=== PATIENT | male | born 1945 | race Caucasian/White ===

== ENCOUNTER → 2025-09-29 08:53 | Outpatient (CLI) | payer OTHER, SELFPAY ==
--- NOTE | 2025-09-29 08:55 | DI.ECHO.S_ITS ---
[facility]+ [facility] : : [address] : : [place] : : [id number] : : Phone: [phone] Echocardiogram Report + + :Name: JAMES DORANTES Study Date: 09/29/2025 Height: 77 in : :[facility] ReadingLocation: Weight: 270 lb : : Gender: Male BSA: 2.5 m2 : :: 1945 Age: 80 yrs BP: 131/61 mmHg: :Reason For Study: HEART DISEASE : :Ordering Physician: DOMINIK, : :QAIN Performed By: Ga Alcaraz : :Referring: QIAN LEHMAN : + + Interpretation Summary 1) Normal left ventricular thickness and size with mildly reduced systolic function (EF 45-50%). There is mild global hypokinesis of the left ventricle. 2) Upper normal right ventricular size with normal function. 3) No significant valvular abnormalities. 4) No prior Echo available for comparison. Procedure: A two-dimensional transthoracic echocardiogram with color flow and Doppler was performed. The study quality was technically adequate. There is no prior echocardiogram noted for this patient. The patient was in atrial fibrillation with heart rates between 51-73 bpm during the exam. Left Ventricle: The left ventricle is normal in size. There is normal left ventricular wall thickness. There is no ventricular septal defect visualized. The ejection fraction is estimated to be 45-50%. There is mild global hypokinesis of the left ventricle. Diastolic function could not be accurately assessed due to atrial fibrillation. Right Ventricle: The right ventricle is at the upper limits of normal in size. The right ventricular systolic function is normal. Atria: The left atrium is mildly dilated. The right atrium is mildly dilated. There is no Doppler evidence for an interatrial shunt. Mitral Valve: There is a flat closure plane of the the mitral valve leaflets. There is trace mitral regurgitation. Aortic Valve: The aortic valve is trileaflet. The aortic valve opens well. There is no aortic valve stenosis. No aortic regurgitation is present. Tricuspid Valve: The tricuspid valve leaflets are thin and pliable. There is a trace or physiologic amount of tricuspid regurgitation. Pulmonic Valve: The pulmonic valve is not well seen, but is grossly normal. There is no pulmonic valvular regurgitation. Great Vessels: The aortic root is mildly dilated. The dimensions of the ascending aorta are normal. The pulmonary artery is not well visualized, but is probably normal size. The inferior vena cava was not visualized. Pericardium/ Pleura There is no pericardial effusion. MMode/2D Measurements & Calculations LVIDd: 5.3 cm LVOT diam: 2.3 cm LVIDs: 3.6 cm Ao root diam: 3.9 cm FS: 33.2 % EPSS: 0.75 cm IVSd: 1.0 cm LVPWd: 0.87 cm LV jordan. diameter/BSA (cm/m^2): 2.1 LV sys. diameter/BSA (cm/m^2): 1.4 LA A2 area: 24.0 cm2 RA long axis: 6.0 cm LA A4 area: 23.8 cm2 RA area: 22.8 cm2 LA length (vol): 6.8 cm RA vol: 73.7 ml LA vol: 70.8 ml RA : 29.0 ml/m2 LA vol index: 27.8 ml/m2 RVD1 (basal): 4.3 cm RVD2 (mid): 3.0 cm TAPSE: 1.6 cm Doppler Measurements & Calculations Ao V2 max: 100.7 cm/sec LVOT Max Edi: 77.1 cm/sec Ao V2 mean: 75.9 cm/sec LV V1 max P.4 mmHg Ao max P.1 mmHg LV V1 VTI: 16.9 cm Ao mean P.5 mmHg NATALY(I,D): 3.3 cm2 Ao V2 VTI: 22.1 cm NATALY(V,D): 3.3 cm2 sev ratio: 0.77 NATALY indexed to BSA (cm^2/m^2): 1.3 MV E max edi: 69.1 cm/sec TR max edi: 282.3 cm/sec MV A max edi: 13.2 cm/sec TR max P.9 mmHg MV E/A: 5.2 PA V2 max: 73.3 cm/sec Med Peak E' Edi: 4.5 cm/sec PA V2 mean: 48.8 cm/sec E/E' med: 15.4 PA mean P.1 mmHg Lat Peak E' Edi: 10.6 cm/sec PA pr(Accel): 27.6 mmHg E/E' lat: 6.5 E/e' average: 10.9 MV dec time: 0.24 sec SV([facility]): 72.1 ml Reading Physician:12:28 PM
== END ==
LOC: ECHO 08:55
PROVIDERS: Referring Provider Orthopaedic Surgery; Visit Provider Physician Assistant
DX: I77.810 Thoracic aortic ectasia (principal); I51.9 Heart disease, unspecified
CPT/HCPCS: 93306